=== PATIENT | male | born 1975 | race Caucasian/White ===

== ENCOUNTER 2017-12-23 02:52 | Emergency (ER) | payer OTHER ==
[~2017-12-23] VITALS: Ht 177.8 cm; Wt 76.3 kg
[~2017-12-23 02:52] MED LIST: NAPROSYN500 MG PO; NORCO 7.5/321 TABLET PO
[2017-12-23 03:51] LABS: BASOPHIL (%) 0.4 % (0-1); EOSINOPHIL (%) 1.1 % (0-5); EOSINOPHIL COUNT 0.1 K/uL (0-0.3); HEMATOCRIT 37.4 % (38.0-50.0); HEMOGLOBIN 13.2 G/DL (12.5-16.6); IMMATURE GRANULOCYTE (%) 0.3 % (0.0-0.7); LYMPHOCYTE (%) 10.9 % (15-42); LYMPHOCYTE COUNT 1.1 K/uL (1.0-2.8); MCH 31.1 PG (29.0-34.0); MCHC 35.3 G/DL (30.0-36.0); MONOCYTE (%) 4.8 % (3-12); MONOCYTE COUNT 0.5 K/uL (0-0.8); NEUTROPHIL (%) 82.5 % (45-76); NEUTROPHIL COUNT 8.5 K/uL (1.8-6.4); PLATELET COUNT 175 K/uL (156-360); RBC DIS.WIDTH-CV 11.7 % (11.8-14.6); RBC DIS.WIDTH-SD 37.2 % (39-53); RED BLOOD COUNT 4.25 M/uL (4.00-5.50); WHITE BLOOD COUNT 10.3 K/uL (4.1-10.2)
[2017-12-23 04:00] LABS: PTT 30.9 SEC (25-37)
[2017-12-23 04:03] LABS: ALBUMIN 3.9 g/dL (3.2-4.8); CHLORIDE 106 mEq/L (99-109); POTASSIUM 3.9 mEq/L (3.7-5.4); SODIUM 143 mEq/L (136-147)
[2017-12-23 04:06] LABS: GLUCOSE 92 mg/dL (70-99)
[2017-12-23 04:08] LABS: TOTAL BILIRUBIN 0.3 mg/dL (0.0-1.0)
[2017-12-23 04:09] LABS: ALKALINE PHOSPHATASE 78 IU/L (3-129)
[2017-12-23 04:10] LABS: CREATININE 0.8 mg/dL (0.6-1.3); GFR ESTIMATE (CALCULATED) > 59 mL/min/ (58.99-99999)
[2017-12-23 04:11] LABS: AST (GOT) 32 IU/L (2-34); UREA NITROGEN (BUN) 15 mg/dL (9-23)
[2017-12-23 04:12] LABS: ALT (GPT) 26 IU/L (3-49)
[2017-12-23 04:13] LABS: LIPASE 42 U/L (1.0-51.0)
[2017-12-23] MEDS ORDERED: TRAMADOL HCL50 MG PO (06:14)
[2017-12-23] MEDS ORDERED: CARAFATE1 GM PO (06:14)
[2017-12-23 06:35] VITALS: BP 140/87
== END 2017-12-23 06:37 | disposition home or self-care (01) ==
LOC: EME 02:52
PROVIDERS: Emergency Medicine
DX: K44.9 Diaphragmatic hernia without obstruction or gangrene (principal); K92.0 Hematemesis; N28.89 Other specified disorders of kidney and ureter; F32.9 Major depressive disorder, single episode, unspecified
CPT/HCPCS: 74177; 80053; 83690; 85025; 85610; 85730; 86850; 86900; 86901; 93005; C9113; J2405; J7030